=== PATIENT | male | born 1950 | race Caucasian/White ===

== ENCOUNTER 2019-01-13 09:14 | Emergency (ER) | payer MEDICARE ==
[~2019-01-13] VITALS: Ht 175.3 cm; Wt 103.6 kg
[2019-01-13 09:23] VITALS: Ht 175.3 cm; Wt 103.6 kg
[2019-01-13] MEDS ORDERED: NORVASC2.5 MG (09:24)
[2019-01-13] MEDS ORDERED: LISINOPRIL2.5 MG (09:24)
[2019-01-13] MEDS ORDERED: LIPITOR20 MG (09:24)
[2019-01-13] MEDS ORDERED: BP MED (09:24)
[2019-01-13] MEDS ORDERED: FER-IN-SOL DROP50 ML (09:24)
[2019-01-13] MEDS ORDERED: CHOLESTEROL MED (09:24)
[2019-01-13 09:53] VITALS: BP 130/67
[2019-01-13] MEDS ORDERED: KEFLEX500 MG PO (11:00)
== END 2019-01-13 11:30 | disposition home or self-care (01) ==
LOC: D.ER 09:14
DX: S61.216A Laceration without foreign body of right little finger without damage to nail, initial encounter (principal); I10 Essential (primary) hypertension; E78.5 Hyperlipidemia, unspecified